=== PATIENT | female | born 1945 | race Hispanic/Latino ===

== ENCOUNTER 2019-11-15 05:51 | Day surgery (SDC) | payer OTHER ==
[2019-11-11 13:47] LABS: BASOPHILS % (AUTO) 0.8 % (0.0-5.0); EOSINOPHILS % (AUTO) 6.2 % (0.0-8.0); HEMATOCRIT 43.4 % (36-48); LYMPHOCYTES % (AUTO) 24.3 % (21.0-51.0); MEAN CORPUSCULAR HEMOGLOBIN 31.2 pg (27.0-33.0); MEAN CORPUSCULAR HGB CONC 32.9 g/dL (32.0-36.0); MEAN CORPUSCULAR VOLUME 94.8 fL (79-99); MONOCYTES % (AUTO) 10.9 % (3.0-13.0); NEUTROPHILS % (AUTO) 57.5 % (40.0-77.0); PLATELET COUNT (AUTO) 192 K/uL (130-400); RED BLOOD CELL COUNT(AUTO) 4.58 MIL/uL (4.00-5.50); WHITE BLOOD COUNT (AUTO) 6.5 K/uL (4.8-10.8)
[2019-11-11 13:52] LABS: APPEARANCE,URINE Clear (CLEAR); BILIRUBIN,URINE Negative (NEGATIVE); COLOR,URINE Dark Yellow (YELLOW); GLUCOSE, URINE (UA) Negative (NEGATIVE); KETONES,URINE Trace mg/dL (NEGATIVE); LEUKOCYTE ESTERASE ,URINE Moderate (NEGATIVE); NITRATE,URINE Negative (NEGATIVE); OCCULT BLOOD,URINE Negative (NEGATIVE); PROTEIN,URINE Negative (NEGATIVE)
[2019-11-11 13:59] LABS: CREATININE 1.1 mg/dL (0.5-1.5); POTASSIUM 4.6 mmol/L (3.5-5.1)
[2019-11-11 14:04] LABS: INR 0.99 (0.85-1.15); PARTIAL THROMBOPLASTIN TIME 39.3 SEC (26.3-35.5); PROTHROMBIN TIME 10.7 SEC (9.6-11.6)
[2019-11-11 14:06] LABS: BACTERIA,URINE Rare /HPF (None Seen); RBC,URINE 0-1 /HPF (0-1); SQUAMOUS EPITHELIAL CELL,UR Rare /HPF (0-2); WBC,URINE 26-50 /HPF (0-1)
[2019-11-11 15:11] VITALS: BP 138/71
[2019-11-15] VITALS (10 sets, daily range): BP systolic 133–152; BP diastolic 60–88
[~2019-11-15] VITALS: Ht 162.6 cm; Wt 82.6 kg
[~2019-11-15 05:51] MED LIST: APIX5TAB PO; LEVO25TA54 PO; LINA5TAB PO; METF-446 PO; OMEG1CAP2 PO; PIND5 PO; SIMV-43 PO; SODIUM CHLORIDE 0.9% 500ML 500 ML IV SCH
[2019-11-15] MEDS ORDERED: IOHEXOL-350 50ML VIAL IV ONE (07:25)
[2019-11-15] MEDS ORDERED: NICARDIPINE HCL 25 MG/10 ML ML IV ONE (07:25)
[2019-11-15] MEDS ORDERED: NITROGLYCERIN 2 MG/VIAL VIAL IV ONE (07:25)
[2019-11-15] MEDS ORDERED: HEPARIN SODIUM 1000UNIT/ML 10ML VIAL ONE (07:25)
[2019-11-15] MEDS ORDERED: IOHEXOL 350 MG/ML 100ML INFUS..BTL IV ONE (07:25)
[2019-11-15] MEDS ORDERED: FENTANYL CITRATE PF 50 MCG/1 ML 2ML VIAL ONE (07:26)
[2019-11-15] MEDS ORDERED: MIDAZOLAM HCL 1 MG/ML 2ML VIAL ONE (07:26)
[2019-11-15] MEDS ORDERED: LIDOCAINE HCL 2% 20ML ONE (07:26)
[2019-11-15] MEDS ORDERED: SODIUM CHLORIDE 0.9% 1000ML 1,000 ML IV ONE (08:52)
--- NOTE | 2019-11-15 13:05 | NUR ---
PATIENT RETURNED TO DAY PATIENT VIA BED BY RADHA GONZALEZ RN. PATIENT [id number], RESPIRATIONS UNLABORED, VITAL SIGNS STABLE, DENIES ANY PAIN AT THIS TIME. DRESSING TO RIGHT GROIN IS DRY/INTACT. NO BLEEDING/DRAINAGE NOTED. AREA IS SOFT/NONTENDER AND PEDAL PULSES STRONG BILATERALLY. WILL CONTINUE TO MONITOR PATIENT.
--- NOTE | 2019-11-15 15:13 | NUR ---
DISCHARGE INSTRUCTIONS PROVIDED TO PATIENT'S NEPHEW VIA TELEPHONE. FOLLOW UP APPOINTMENT PROVIDED AND FEMORAL SITE CARE INSTRUCTIONS PROVIDED WELL. ALL QUESTIONS ADDRESSED. Addendum: 11/15/19 at 1520 by RUPAL VIEIRA RN RN PATIENT'S NEPHEW (PERI KILLIAN)
[2019-11-15] MEDS ORDERED: ACETAMINOPHEN 325 MG TAB ONE (15:24)
[2019-11-15] MEDS ORDERED: ACETAMINOPHEN 325 MG TAB PO ONE (15:30)
--- NOTE | 2019-11-15 15:41 | NUR ---
HANDOFF COMMUNICATION GIVEN TO CAYLA TATUM RN AT BEDSIDE USING SBAR. DRESSING TO RIGHT GROIN IS DRY/INTACT, AREA SOFT AND NONTENDER. VITAL SIGNS STABLE.
== END 2019-11-15 17:30 | disposition home or self-care (01) ==
LOC: DAH 05:51
PROVIDERS: ATTEND Internal Medicine Cardiovascular Disease
DX: R06.00 Dyspnea, unspecified (principal); I25.10 Atherosclerotic heart disease of native coronary artery without angina pectoris; I11.9 Hypertensive heart disease without heart failure; I48.20 Chronic atrial fibrillation, unspecified; E78.5 Hyperlipidemia, unspecified; E11.9 Type 2 diabetes mellitus without complications; K21.9 Gastro-esophageal reflux disease without esophagitis; Z79.01 Long term (current) use of anticoagulants; Z79.84 Long term (current) use of oral hypoglycemic drugs; Z79.899 Other long term (current) drug therapy
CPT/HCPCS: 36415; 71045; 80048; 81001; 82948; 85025; 85610; 85730; 87088; 93005; 93458; A4216; A4221; A4222; A4223 ×3; A4606; A4663; C1760; C1894 ×2; J1644; J2250; J3010; J3490 ×2; J7030; Q9965; Q9967; 99156; 99157

== ENCOUNTER 2019-12-12 06:04 | Observation (INO) | payer OTHER ==
[2019-12-08 10:45] LABS: BASOPHILS % (AUTO) 0.9 % (0.0-5.0); HEMATOCRIT 46.8 % (36-48); LYMPHOCYTES % (AUTO) 23.8 % (21.0-51.0); MEAN CORPUSCULAR HEMOGLOBIN 30.8 pg (27.0-33.0); MEAN CORPUSCULAR HGB CONC 32.1 g/dL (32.0-36.0); MEAN CORPUSCULAR VOLUME 96.1 fL (79-99); MONOCYTES % (AUTO) 9.5 % (3.0-13.0); NEUTROPHILS % (AUTO) 60.5 % (40.0-77.0); PLATELET COUNT (AUTO) 189 K/uL (130-400); RED BLOOD CELL COUNT(AUTO) 4.87 MIL/uL (4.00-5.50); RED CELL DISTRIBUTION WIDTH 13.1 % (11.0-15.5); WHITE BLOOD COUNT (AUTO) 5.8 K/uL (4.8-10.8)
[2019-12-08 10:55] LABS: CREATININE 0.9 mg/dL (0.5-1.5); POTASSIUM 4.3 mmol/L (3.5-5.1)
[~2019-12-12] VITALS: Ht 165.1 cm; Wt 84.4 kg
[2019-12-12] VITALS (11 sets, daily range): BP systolic 117–143; BP diastolic 60–95
[2019-12-12] MEDS: CEFAZOLIN SODIUM 1 GM VIAL IVP SCH (05:00)
[~2019-12-12 06:04] MED LIST changes: -SODIUM CHLORIDE 0.9% 500ML 500 ML IV SCH
[2019-12-12] MEDS ORDERED: SODIUM CHLORIDE 0.9% 1000ML 1,000 ML IV ONE (06:10)
[2019-12-12 07:03] LABS: INR 0.97 (0.85-1.15); PARTIAL THROMBOPLASTIN TIME 31.6 SEC (26.3-35.5); PROTHROMBIN TIME 10.5 SEC (9.6-11.6)
--- NOTE | 2019-12-12 07:30 | NUR ---
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 pt denied any pain or discomforts.
[2019-12-12] MEDS ORDERED: IODIXANOL 320 MG/ML 100 ML VIAL ONE (07:42)
[2019-12-12] MEDS ORDERED: MIDAZOLAM HCL 1 MG/ML 2ML VIAL ONE ×2 (07:42→08:16)
[2019-12-12] MEDS ORDERED: BUPIVACAINE/PF 0.25% 30ML VIAL IJ ONE (07:42)
[2019-12-12] MEDS ORDERED: LIDOCAINE HCL 1% MDV 50ML VIAL ONE (07:42)
[2019-12-12] MEDS ORDERED: MEPERIDINE-PF 25 MG/ML SYG ONE ×2 (07:42→08:16)
[2019-12-12] MEDS ORDERED: CEFAZOLIN SODIUM 1 GM VIAL ONE (07:42)
[2019-12-12] MEDS: ACETAMINOPHEN-CODEINE 300/30MG TAB PO PRN ×2 (15:05→21:21)
[2019-12-12] MEDS ORDERED: SIMVASTATIN 20 MG TABLET PO SCH (21:00)
[2019-12-12] MEDS: FISH OIL 1000 MG/CAP PO SCH (21:20)
[2019-12-12] MEDS: PINDOLOL 5 MG TAB PO SCH (21:56)
--- NOTE | 2019-12-12 23:00 | NUR ---
Patient requested 1 pain pill. Per order give 1-2 tabs for pain. Order corrected. Input as 2 different orders. Administered one tab.
[2019-12-12] MEDS ORDERED: ACETAMINOPHEN-CODEINE 300/30MG TAB PO PRN (23:15)
[2019-12-13] VITALS: BP 140/73
--- NOTE | 2019-12-13 03:27 | NUR ---
Patient resting in bed, no chest pain or sob. Does complain of soreness to incision site. Cold pack and pain meds administered. Hands floor care technician equal, radial pulses intact. No numbing or tingling to left hand or arm. Will continue to monitor.
[2019-12-13 04:11] VITALS: BP 105/67
[2019-12-13] MEDS: CEFAZOLIN SODIUM 1 GM VIAL IVP SCH (05:00)
[2019-12-13 05:55] LABS: BASOPHILS % (AUTO) 0.5 % (0.0-5.0); EOSINOPHILS % (AUTO) 5.6 % (0.0-8.0); HEMATOCRIT 43.2 % (36-48); LYMPHOCYTES % (AUTO) 24.3 % (21.0-51.0); MEAN CORPUSCULAR HEMOGLOBIN 31.3 pg (27.0-33.0); MEAN CORPUSCULAR HGB CONC 32.9 g/dL (32.0-36.0); MEAN CORPUSCULAR VOLUME 95.4 fL (79-99); MONOCYTES % (AUTO) 10.6 % (3.0-13.0); NEUTROPHILS % (AUTO) 58.7 % (40.0-77.0); PLATELET COUNT (AUTO) 163 K/uL (130-400); RED BLOOD CELL COUNT(AUTO) 4.53 MIL/uL (4.00-5.50); RED CELL DISTRIBUTION WIDTH 13.2 % (11.0-15.5)
[2019-12-13 06:33] LABS: CREATININE 0.9 mg/dL (0.5-1.5); POTASSIUM 4.3 mmol/L (3.5-5.1)
[2019-12-13 07:54] VITALS: BP 135/76
[2019-12-13] MEDS ORDERED: LEVOTHYROXINE 25 MCG TABLET PO SCH (09:00)
[2019-12-13] MEDS ORDERED: LINAGLIPTIN 5 MG TABLET PO SCH (09:00)
[2019-12-13] MEDS: FISH OIL 1000 MG/CAP PO SCH (09:09)
[2019-12-13] MEDS: PINDOLOL 5 MG TAB PO SCH (09:10)
[2019-12-13 12:02] VITALS: BP 141/76
--- NOTE | 2019-12-13 12:49 | NUR ---
1200 patient signed [facility] Letter, I faxed [facility] Letter to [phone] and placed in chart under consent tab.
--- NOTE | 2019-12-13 14:17 | NUR ---
DISCHARGE DISCHARGE INSTRUCTIONS GIVEN TO PATIENT, VERBALIZED UNDERSTANDING. IV REMOVED, TELEMETRY REMOVED. DRESSING CHANGES EXPLAINED TO PATIENT AND GAVE ENOUGH DRESSING SUPPLIES FOR 3 CHANGES.
== END 2019-12-13 16:45 | disposition home or self-care (01) ==
LOC: DAH 06:04 → DAHIP 06:05 → 4AH 11:04
PROVIDERS: ADMIT Internal Medicine; ATTEND Internal Medicine
DX: I48.21 Permanent atrial fibrillation (principal); I44.2 Atrioventricular block, complete; I49.5 Sick sinus syndrome; I42.8 Other cardiomyopathies; I10 Essential (primary) hypertension; E78.5 Hyperlipidemia, unspecified; I25.10 Atherosclerotic heart disease of native coronary artery without angina pectoris; I47.2 Ventricular tachycardia; E11.9 Type 2 diabetes mellitus without complications; K21.9 Gastro-esophageal reflux disease without esophagitis; Z95.0 Presence of cardiac pacemaker; Z79.01 Long term (current) use of anticoagulants; Z79.84 Long term (current) use of oral hypoglycemic drugs; Z79.899 Other long term (current) drug therapy
CPT/HCPCS: 33225; 33229; 36415 ×3; 71045; 80048 ×2; 82948 ×5; 85025 ×2; 85610; 85730; 96360; 96361 ×2; A4215; A4216; A4221; A4222; A4223 ×3; A4606; A4663; C1769 ×2; C1900; C2621; G0378 ×19; J0690; J2175 ×2; J2250 ×2; J3490 ×2; J7030; Q9967; 33227; 99156; 99157